=== PATIENT | female | born 1990 | race Two or more races ===

== ENCOUNTER → 2018-01-19 | Emergency (ER) | payer OTHER | END | disposition left against medical advice (07) | LOC: ER 20:15 | DX: R52 Pain, unspecified (principal); Z53.21 Procedure and treatment not carried out due to patient leaving prior to being seen by health care provider ==

== ENCOUNTER 2018-07-01 15:03 | Emergency (ER) | payer SELFPAY ==
[~2018-07-01] VITALS: Ht 157.5 cm; Wt 57.2 kg
[2018-07-01 15:17] VITALS: BP 101/61
== END 2018-07-01 18:31 | disposition left against medical advice (07) ==
LOC: ER 15:07
DX: R06.02 Shortness of breath (principal); Z53.21 Procedure and treatment not carried out due to patient leaving prior to being seen by health care provider